=== PATIENT | female | born 1940 | race Caucasian/White ===

== ENCOUNTER 2020-03-13 17:20 | Inpatient (IN) ==
[2020-03-13] MEDS ORDERED: Morphine Sulfate 2 MG/ML SYRINGE IVP ONE (17:33)
[2020-03-13 18:18] LABS: INR 1.7; Prothrombin Time 19.4 Seconds (9.4-12.1)
[2020-03-13 18:21] LABS: Bilirubin,Urine Negative (Negative); Blood,Urine Negative (Negative); Clarity,Urine Clear (Clear); Color,Urine Light-Yellow (Yellow); Glucose,Urine (UA) Normal (Normal); Ketones,Urine Negative (Negative); Leukocyte Esterase,Urine Negative (Negative); Nitrite,Urine Negative (Negative); Protein,Urine Negative (Neg-Trace); Specific Gravity,Urine 1.011 (1.010-1.025); Urobilinogen,Urine Normal (Normal)
[2020-03-13 18:24] LABS: Basophils % 0.4 %; Eosinophils # 0.3 K/mcL (0.0-0.6); Eosinophils % 2.4 %; Hematocrit 46.8 % (35.3-44.9); Hemoglobin 15.2 g/dL (11.5-15.4); Immature Granulocytes % 0.6 % (0-4); Lymphocytes % 8.9 %; Mean Corpuscular HGB Conc 32.5 g/dL (31.6-35.5); Mean Corpuscular Hemoglobin 30.9 pg (28.0-33.3); Mean Corpuscular Volume 95.1 fL (83.0-100.0); Mean Platelet Volume 8.8 fL (9.4-12.4); Monocytes # 1.1 K/mcL (0.0-1.3); Monocytes % 10.3 %; Neutrophils # 8.2 K/mcL (1.6-8.9); Platelet Count 294 K/mcL (140-400); Red Blood Count 4.92 M/mcL (3.82-4.97); Red Cell Distribution Width 13.8 % (11.5-14.5); Segmented Neutrophils % 77.4 %; White Blood Count 10.6 K/mcL (4.3-11.1)
[2020-03-13 18:32] LABS: Albumin 4.2 g/dL (3.5-5.7); Albumin/Globulin Ratio 1.6 (1.1-2.2); Bilirubin,Direct 0.1 mg/dL (0.0-0.2); Bilirubin,Indirect 0.4 mg/dL (0.0-1.0); Bilirubin,Total 0.5 mg/dL (0.3-1.0); Globulin 2.6 g/dL (2.4-3.5); Total Protein 6.8 g/dL (6.4-8.9)
[2020-03-13 18:34] LABS: BUN/Creatinine Ratio 27 (6-26); Blood Urea Nitrogen 21 mg/dL (8-23); Calcium 9.7 mg/dL (8.6-10.3); Carbon Dioxide 35 mEq/L (23-29); Chloride 96 mEq/L (98-107); Glucose 135 mg/dL (70-105); Osmolality,Calculated 293 (280-300); Potassium 4.1 mEq/L (3.5-5.1); Sodium 139 mEq/L (136-145); eGFR For African Americans > 60 (> 60); eGFR For Non-African Americans > 60 (> 60)
[2020-03-13 18:35] LABS: Troponin I < 0.03 ng/mL (< 0.04)
[2020-03-13] MEDS ORDERED: Naloxone 0.4 MG/ML INJ IVP PRN (21:57)
[2020-03-13] MEDS ORDERED: Ondansetron 4 MG/2 ML VIAL IVP PRN (21:57)
[2020-03-13] MEDS ORDERED: Perflutren Lipid Microsphere 1.3 ML in 0.9 % Sodium Chloride 8.7 ML IVP PRN (23:03)
[2020-03-13] MEDS ORDERED: Isovue-370 500 ML BOTTLE IVP ONE (23:54)
[2020-03-14] MEDS: Acetaminophen 325 MG TABLET PO PRN (02:59)
[2020-03-14 04:53] LABS: INR 1.4; Prothrombin Time 15.9 Seconds (9.4-12.1)
[2020-03-14 04:54] LABS: BUN/Creatinine Ratio 27 (6-26); Blood Urea Nitrogen 18 mg/dL (8-23); Calcium 9.1 mg/dL (8.6-10.3); Carbon Dioxide 34 mEq/L (23-29); Chloride 98 mEq/L (98-107); Glucose 108 mg/dL (70-105); Magnesium 2.3 mg/dL (1.6-2.6); Osmolality,Calculated 288 (280-300); Phosphorous 3.2 mg/dL (2.7-4.5); Potassium 4.1 mEq/L (3.5-5.1); Sodium 138 mEq/L (136-145); eGFR For African Americans > 60 (> 60); eGFR For Non-African Americans > 60 (> 60)
[2020-03-14 05:32] LABS: Basophils % 0.4 %; Eosinophils # 0.3 K/mcL (0.0-0.6); Eosinophils % 2.3 %; Hematocrit 39.7 % (35.3-44.9); Hemoglobin 12.9 g/dL (11.5-15.4); Immature Granulocytes % 0.4 % (0-4); Lymphocytes # 1.2 K/mcL (0.6-4.6); Lymphocytes % 11.1 %; Mean Corpuscular HGB Conc 32.5 g/dL (31.6-35.5); Mean Corpuscular Hemoglobin 30.2 pg (28.0-33.3); Mean Platelet Volume 8.8 fL (9.4-12.4); Monocytes # 1.6 K/mcL (0.0-1.3); Monocytes % 14.6 %; Neutrophils # 7.7 K/mcL (1.6-8.9); Platelet Count 249 K/mcL (140-400); Red Blood Count 4.27 M/mcL (3.82-4.97); Red Cell Distribution Width 13.8 % (11.5-14.5); Segmented Neutrophils % 71.2 %; White Blood Count 10.8 K/mcL (4.3-11.1)
[2020-03-14] MEDS ORDERED: Furosemide 40 MG/4 ML VIAL IVP SCH (08:00)
[2020-03-14] MEDS ORDERED: *HR* Rivaroxaban 10 MG TABLET PO SCH (09:00)
[2020-03-14] MEDS ORDERED: SUMAtriptan succinate 50 MG TABLET PO PRN (09:00)
[2020-03-14] MEDS: Spironolactone 25 MG TABLET PO SCH (09:03)
[2020-03-14] MEDS: Cholecalciferol (D-3) 1,000 UNIT (25MCG) TABLET PO SCH (09:03)
[2020-03-14] MEDS: Cyanocobalamin (B-12) 1,000 MCG/ML VIAL IM SCH (09:04)
[2020-03-14] MEDS: DilTIAZem CD (24hr) 240 MG CAP.ER.24H PO SCH (09:04)
[2020-03-14] MEDS: Magnesium Oxide 400 MG TABLET PO SCH ×2 (09:04→21:50)
[2020-03-14] MEDS: polyethylene glycoL 3350 17 GM POWD.PACK PO SCH (09:07)
[2020-03-14] MEDS: Nystatin POWDER 30 GM BOTTLE TP SCH (10:11)
[2020-03-14] MEDS ORDERED: Albuterol 2.5 MG/3 ML NEBULIZER IH PRN (10:46)
[2020-03-14] MEDS ORDERED: Furosemide 40 MG/4 ML VIAL IVP ONE (18:00)
[2020-03-14] MEDS ORDERED: Furosemide 40 MG TABLET PO SCH (21:00)
[2020-03-15 01:11] LABS: Basophils % 0.3 %; Eosinophils # 0.3 K/mcL (0.0-0.6); Eosinophils % 2.4 %; Hematocrit 39.9 % (35.3-44.9); Hemoglobin 13.2 g/dL (11.5-15.4); Immature Granulocytes % 0.2 % (0-4); Lymphocytes # 1.1 K/mcL (0.6-4.6); Lymphocytes % 9.9 %; Mean Corpuscular HGB Conc 33.1 g/dL (31.6-35.5); Mean Corpuscular Hemoglobin 31.1 pg (28.0-33.3); Mean Corpuscular Volume 93.9 fL (83.0-100.0); Mean Platelet Volume 8.8 fL (9.4-12.4); Monocytes # 1.6 K/mcL (0.0-1.3); Monocytes % 14.3 %; Platelet Count 269 K/mcL (140-400); Red Blood Count 4.25 M/mcL (3.82-4.97); Red Cell Distribution Width 13.9 % (11.5-14.5); Segmented Neutrophils % 72.9 %
[2020-03-15 01:32] LABS: BUN/Creatinine Ratio 24 (6-26); Blood Urea Nitrogen 18 mg/dL (8-23); Calcium 8.7 mg/dL (8.6-10.3); Carbon Dioxide 32 mEq/L (23-29); Chloride 96 mEq/L (98-107); Glucose 124 mg/dL (70-105); Magnesium 2.2 mg/dL (1.6-2.6); Osmolality,Calculated 287 (280-300); Phosphorous 3.4 mg/dL (2.7-4.5); Potassium 3.9 mEq/L (3.5-5.1); Sodium 137 mEq/L (136-145); eGFR For African Americans > 60 (> 60); eGFR For Non-African Americans > 60 (> 60)
[2020-03-15] MEDS: Cholecalciferol (D-3) 1,000 UNIT (25MCG) TABLET PO SCH (08:41)
[2020-03-15] MEDS: Furosemide 40 MG TABLET PO SCH ×3 (08:41→21:08)
[2020-03-15] MEDS: DilTIAZem CD (24hr) 240 MG CAP.ER.24H PO SCH (08:41)
[2020-03-15] MEDS: Magnesium Oxide 400 MG TABLET PO SCH ×2 (08:42→21:08)
[2020-03-15] MEDS: polyethylene glycoL 3350 17 GM POWD.PACK PO SCH (08:42)
[2020-03-15] MEDS: Cyanocobalamin (B-12) 1,000 MCG/ML VIAL IM SCH (08:42)
[2020-03-15] MEDS: Spironolactone 25 MG TABLET PO SCH (08:42)
[2020-03-15] MEDS: Nystatin POWDER 30 GM BOTTLE TP SCH (08:43)
[2020-03-16] MEDS: *HR* HYDROcodone/Acet 5/325 mg TABLET PO PRN ×2 (05:06→18:33)
[2020-03-16 07:12] LABS: BUN/Creatinine Ratio 22 (6-26); Blood Urea Nitrogen 16 mg/dL (8-23); Calcium 8.8 mg/dL (8.6-10.3); Carbon Dioxide 34 mEq/L (23-29); Chloride 96 mEq/L (98-107); Glucose 111 mg/dL (70-105); Osmolality,Calculated 288 (280-300); Potassium 3.8 mEq/L (3.5-5.1); Sodium 138 mEq/L (136-145); eGFR For African Americans > 60 (> 60); eGFR For Non-African Americans > 60 (> 60)
[2020-03-16] MEDS: Cholecalciferol (D-3) 1,000 UNIT (25MCG) TABLET PO SCH (07:49)
[2020-03-16] MEDS: Magnesium Oxide 400 MG TABLET PO SCH ×2 (07:49→21:00)
[2020-03-16] MEDS: Furosemide 40 MG TABLET PO SCH ×2 (07:50→21:01)
[2020-03-16] MEDS: DilTIAZem CD (24hr) 240 MG CAP.ER.24H PO SCH (07:50)
[2020-03-16] MEDS: Cyanocobalamin (B-12) 1,000 MCG/ML VIAL IM SCH (07:59)
[2020-03-16] MEDS: polyethylene glycoL 3350 17 GM POWD.PACK PO SCH (07:59)
[2020-03-16] MEDS: Nystatin POWDER 30 GM BOTTLE TP SCH (08:03)
[2020-03-16] MEDS: Spironolactone 25 MG TABLET PO SCH (08:33)
[2020-03-16] MEDS: Acetaminophen 325 MG TABLET PO PRN (19:34)
[2020-03-17] MEDS: *HR* HYDROcodone/Acet 5/325 mg TABLET PO PRN (05:27)
[2020-03-17 05:59] LABS: Basophils # 0.1 K/mcL (0.0-0.2); Basophils % 0.4 %; Eosinophils # 0.4 K/mcL (0.0-0.6); Eosinophils % 2.9 %; Hematocrit 37.8 % (35.3-44.9); Hemoglobin 12.4 g/dL (11.5-15.4); Immature Granulocytes % 0.4 % (0-4); Lymphocytes # 1.1 K/mcL (0.6-4.6); Lymphocytes % 7.7 %; Mean Corpuscular HGB Conc 32.8 g/dL (31.6-35.5); Mean Corpuscular Hemoglobin 30.6 pg (28.0-33.3); Mean Corpuscular Volume 93.3 fL (83.0-100.0); Mean Platelet Volume 8.6 fL (9.4-12.4); Monocytes % 14.6 %; Neutrophils # 10.1 K/mcL (1.6-8.9); Platelet Count 264 K/mcL (140-400); Red Blood Count 4.05 M/mcL (3.82-4.97); Red Cell Distribution Width 14.1 % (11.5-14.5); White Blood Count 13.6 K/mcL (4.3-11.1)
[2020-03-17 06:18] LABS: Alanine Aminotransferase 6 Units/L (7-52); Albumin 3.7 g/dL (3.5-5.7); Albumin/Globulin Ratio 1.4 (1.1-2.2); Alkaline Phosphatase 71 Units/L (34-104); Aspartate Amino Transferase 10 Units/L (13-39); BUN/Creatinine Ratio 26 (6-26); Bilirubin,Total 0.7 mg/dL (0.3-1.0); Blood Urea Nitrogen 18 mg/dL (8-23); Carbon Dioxide 35 mEq/L (23-29); Chloride 97 mEq/L (98-107); Globulin 2.6 g/dL (2.4-3.5); Glucose 109 mg/dL (70-105); Osmolality,Calculated 288 (280-300); Potassium 4.1 mEq/L (3.5-5.1); Sodium 138 mEq/L (136-145); Total Protein 6.3 g/dL (6.4-8.9); eGFR For African Americans > 60 (> 60); eGFR For Non-African Americans > 60 (> 60)
[2020-03-17] MEDS: Magnesium Oxide 400 MG TABLET PO SCH ×2 (07:07→20:30)
[2020-03-17] MEDS: Cholecalciferol (D-3) 1,000 UNIT (25MCG) TABLET PO SCH (07:08)
[2020-03-17] MEDS: DilTIAZem CD (24hr) 240 MG CAP.ER.24H PO SCH (07:08)
[2020-03-17] MEDS: Furosemide 40 MG TABLET PO SCH ×2 (07:08→20:30)
[2020-03-17] MEDS: polyethylene glycoL 3350 17 GM POWD.PACK PO SCH (07:09)
[2020-03-17] MEDS: Spironolactone 25 MG TABLET PO SCH (07:12)
[2020-03-17] MEDS: Cyanocobalamin (B-12) 1,000 MCG/ML VIAL IM SCH (07:13)
[2020-03-17] MEDS: Nystatin POWDER 30 GM BOTTLE TP SCH (07:17)
[2020-03-17] MEDS: cefTRIAXone 1,000 MG in Water for inj. (sterile) 10 ML IVP SCH (12:46)
[2020-03-17] MEDS: Acetaminophen 325 MG TABLET PO PRN (20:30)
[2020-03-18] MEDS: *HR* HYDROcodone/Acet 5/325 mg TABLET PO PRN (01:31)
[2020-03-18] MEDS: Acetaminophen 325 MG TABLET PO PRN (05:40)
[2020-03-18 05:59] LABS: Basophils % 0.3 %; Eosinophils # 0.2 K/mcL (0.0-0.6); Eosinophils % 1.8 %; Hematocrit 35.8 % (35.3-44.9); Hemoglobin 11.7 g/dL (11.5-15.4); Immature Granulocytes % 0.5 % (0-4); Lymphocytes % 8.3 %; Mean Corpuscular HGB Conc 32.7 g/dL (31.6-35.5); Mean Corpuscular Hemoglobin 29.9 pg (28.0-33.3); Mean Corpuscular Volume 91.6 fL (83.0-100.0); Mean Platelet Volume 8.6 fL (9.4-12.4); Monocytes # 2.3 K/mcL (0.0-1.3); Monocytes % 18.6 %; Neutrophils # 8.8 K/mcL (1.6-8.9); Platelet Count 257 K/mcL (140-400); Red Blood Count 3.91 M/mcL (3.82-4.97); Segmented Neutrophils % 70.5 %; White Blood Count 12.5 K/mcL (4.3-11.1)
[2020-03-18] MEDS: polyethylene glycoL 3350 17 GM POWD.PACK PO SCH (07:46)
[2020-03-18] MEDS: Magnesium Oxide 400 MG TABLET PO SCH (07:47)
[2020-03-18] MEDS: DilTIAZem CD (24hr) 240 MG CAP.ER.24H PO SCH (07:47)
[2020-03-18] MEDS: Cholecalciferol (D-3) 1,000 UNIT (25MCG) TABLET PO SCH (07:47)
[2020-03-18] MEDS: Furosemide 40 MG TABLET PO SCH (07:47)
[2020-03-18] MEDS: Spironolactone 25 MG TABLET PO SCH (07:48)
[2020-03-18] MEDS: Cyanocobalamin (B-12) 1,000 MCG/ML VIAL IM SCH (07:50)
[2020-03-18] MEDS: cefTRIAXone 1,000 MG in Water for inj. (sterile) 10 ML IVP SCH (07:53)
[2020-03-18] MEDS: Nystatin POWDER 30 GM BOTTLE TP SCH (08:41)
[2020-03-18 14:36] VITALS: BP 107/67
== END 2020-03-18 17:00 | DRG 291 ==
LOC: 3BNU 17:20 → EMEROOARM 17:20 → SUATTDRO 21:04 → 3BNU 21:34
PROVIDERS: ADMIT Family Medicine; ATTEND Internal Medicine

== ENCOUNTER 2020-05-05 17:55 | Observation (INO) ==
[2020-05-05] MEDS ORDERED: 0.9 % Sodium Chloride 1,000 ML IVC ONE (18:42)
[2020-05-05] MEDS ORDERED: Isovue-370 500 ML BOTTLE IVP ONE ×2 (18:44→18:53)
[2020-05-05] MEDS ORDERED: Ondansetron 4 MG/2 ML VIAL IVP ONE (18:44)
[2020-05-05 19:28] LABS: Basophils % 0.3 %; Eosinophils # 0.2 K/mcL (0.0-0.6); Eosinophils % 1.3 %; Hematocrit 49.8 % (35.3-44.9); Hemoglobin 15.8 g/dL (11.5-15.4); Immature Granulocytes % 0.4 % (0-4); Mean Corpuscular HGB Conc 31.7 g/dL (31.6-35.5); Mean Corpuscular Hemoglobin 29.6 pg (28.0-33.3); Mean Corpuscular Volume 93.4 fL (83.0-100.0); Mean Platelet Volume 9.1 fL (9.4-12.4); Monocytes % 8.1 %; Platelet Count 314 K/mcL (140-400); Red Blood Count 5.33 M/mcL (3.82-4.97); Red Cell Distribution Width 14.6 % (11.5-14.5); Segmented Neutrophils % 81.9 %; White Blood Count 12.2 K/mcL (4.3-11.1)
[2020-05-05 19:35] LABS: INR 1.1; Prothrombin Time 12.3 Seconds (9.4-12.1)
[2020-05-05 19:38] LABS: Activated Partial Thrombo Time 25.5 Seconds (26.0-36.0)
[2020-05-05 20:06] LABS: Alanine Aminotransferase 7 Units/L (7-52); Albumin 3.8 g/dL (3.5-5.7); Albumin/Globulin Ratio 1.4 (1.1-2.2); Alkaline Phosphatase 74 Units/L (34-104); Aspartate Amino Transferase 17 Units/L (13-39); BUN/Creatinine Ratio 32 (6-26); Bilirubin,Direct 0.1 mg/dL (0.0-0.2); Bilirubin,Indirect 0.5 mg/dL (0.0-1.0); Bilirubin,Total 0.6 mg/dL (0.3-1.0); Blood Urea Nitrogen 26 mg/dL (8-23); Carbon Dioxide 30 mEq/L (23-29); Chloride 98 mEq/L (98-107); Ethanol < 10 mg/dL (Less than 10); Globulin 2.8 g/dL (2.4-3.5); Glucose 114 mg/dL (70-105); Osmolality,Calculated 294 (280-300); Potassium 4.1 mEq/L (3.5-5.1); Sodium 139 mEq/L (136-145); Total Protein 6.6 g/dL (6.4-8.9); Troponin I < 0.03 ng/mL (< 0.04); eGFR For African Americans > 60 (> 60); eGFR For Non-African Americans > 60 (> 60)
[2020-05-05 20:14] LABS: Thyroid Stimulating Hormone 2.005 mcIU/mL (0.340-5.600)
[2020-05-05 21:13] LABS: Bacteria,Urine Moderate per hpf (None-Few); Bilirubin,Urine Negative (Negative); Blood,Urine Negative (Negative); Clarity,Urine Clear (Clear); Color,Urine Yellow (Yellow); Glucose,Urine (UA) Normal (Normal); Hyaline Casts,Urine Few per lpf (None Seen); Ketones,Urine Negative (Negative); Leukocyte Esterase,Urine Negative (Negative); Mucus,Urine Few per lpf (None-Few); Nitrite,Urine Positive (Negative); Protein,Urine Negative (Neg-Trace); RBC,Urine 0-3 per hpf (0-3); Specific Gravity,Urine > 1.030 (1.010-1.025); Squamous Epithelial Cell,Urine Moderate per hpf (None-Few); Urobilinogen,Urine Normal (Normal)
[2020-05-05 21:19] LABS: Amphetamine Screen,Urine Negative ng/mL (Cutoff=1000); Barbiturate Screen,Urine Negative ng/mL (Cutoff=200); Benzodiazepines Screen,Urine Negative ng/mL (Cutoff=200); Cannabinoid Screen,Urine Negative ng/mL (Cutoff = 50); Cocaine Screen,Urine Negative ng/mL (Cutoff= 300); Opiate Screen,Urine Negative ng/mL (Cutoff=300); Phencyclidine Screen,Urine Negative ng/mL (Cutoff=25)
[2020-05-05] MEDS ORDERED: cefTRIAXone 1,000 MG in 0.9 % Sodium Chloride Mini Bag 100 ML IVPB ONE (21:50)
[2020-05-05] MEDS ORDERED: Aspirin 325 MG TABLET PO ONE (21:50)
[2020-05-05] MEDS ORDERED: Perflutren Lipid Microsphere 1.3 ML in 0.9 % Sodium Chloride 8.7 ML IVP PRN (23:13)
[2020-05-05] MEDS ORDERED: Naloxone 0.4 MG/ML INJ IVP PRN (23:14)
[2020-05-05] MEDS ORDERED: Ondansetron 4 MG/2 ML VIAL IVP PRN (23:14)
[2020-05-06 06:56] LABS: Hematocrit 45.3 % (35.3-44.9); Mean Corpuscular HGB Conc 30.5 g/dL (31.6-35.5); Mean Corpuscular Hemoglobin 29.1 pg (28.0-33.3); Mean Corpuscular Volume 95.4 fL (83.0-100.0); Mean Platelet Volume 8.8 fL (9.4-12.4); Platelet Count 271 K/mcL (140-400); Red Blood Count 4.75 M/mcL (3.82-4.97); Red Cell Distribution Width 14.6 % (11.5-14.5); White Blood Count 10.9 K/mcL (4.3-11.1)
[2020-05-06 06:57] LABS: Hemoglobin 13.8 g/dL (11.5-15.4)
[2020-05-06 06:58] LABS: INR 1.1; Prothrombin Time 12.4 Seconds (9.4-12.1)
[2020-05-06 07:14] LABS: BUN/Creatinine Ratio 33 (6-26); Blood Urea Nitrogen 21 mg/dL (8-23); Calcium 8.5 mg/dL (8.6-10.3); Carbon Dioxide 31 mEq/L (23-29); Chloride 101 mEq/L (98-107); Chol/HDL Ratio 2.8 (0-4.9); Cholesterol 119 mg/dL (< 200); Glucose 116 mg/dL (70-105); HDL Cholesterol 43 mg/dL (40-59); LDL Cholesterol,Calculated 57 mg/dL (< 100); Magnesium 2.3 mg/dL (1.6-2.6); Osmolality,Calculated 290 (280-300); Sodium 138 mEq/L (136-145); Triglycerides 95 mg/dL (< 150); eGFR For African Americans > 60 (> 60); eGFR For Non-African Americans > 60 (> 60)
[2020-05-06 07:17] LABS: % Iron Saturation 25 % (15-50); Iron 88 mcg/dL (50-170); Transferrin 250 mg/dL (203-362)
[2020-05-06 07:36] LABS: Ferritin 68 ng/mL (10-120)
[2020-05-06] MEDS ORDERED: Aspirin Enteric Coated 81 MG Tablet PO SCH (09:00)
[2020-05-06 12:48] VITALS: BP 118/71
[2020-05-06] MEDS ORDERED: cefTRIAXone 1,000 MG in 0.9 % Sodium Chloride Mini Bag 100 ML IVPB SCH (21:00)
== END 2020-05-06 18:59 | disposition home health service (06) ==
LOC: EMEROOARM 17:55 → CDU 17:55 → SUATTDRO 22:23 → CDU 22:45
PROVIDERS: ADMIT Student in an Organized Health Care Education/Training Program; ATTEND Family Medicine